=== PATIENT | female | born 1960 | race Caucasian/White ===

== ENCOUNTER → 2017-05-07 | Outpatient (CLI) | payer OTHER ==
[2014-11-01 14:36] VITALS: BP 156/84
[~2017-05-07] MED LIST: ALBU6.7H IH; AMLO5TAB4 PO; DESL5TAB PO; ESOM20CA PO; HYDR12.58 PO; IBUP200T44 PO; LEVO50TA5 PO; MINO100C PO; MOME17SP NS; SERT50TA PO; TELM1TAB3 PO
--- NOTE | 2017-05-07 11:40 | RAD ---
2 views right hip 05/07/2017 2:00 AM Indication: disability review Comparison: None Findings: There is no fracture or dislocation identified. Joint space appears preserved. Articular surfaces are uninterrupted. Soft tissues are unremarkable. Impression: No evidence of acute osseous abnormality
--- NOTE | 2017-05-07 11:41 | RAD ---
2 views right knee 05/07/2017 2:00 AM Indication: disability review Comparison: None Findings: There is no fracture or dislocation identified. Articular surfaces are uninterrupted. Joint spaces are preserved. Soft tissues are unremarkable. Tiny ossific density noted inferior to the patella lateral view may be a small loose body. Impression: 1.No evidence of acute osseous abnormality 2. Tiny ossific density noted inferior to the patella possibly representing a small loose body
--- NOTE | 2017-05-07 12:54 | RAD ---
3 views right hand 05/07/2017 2:00 AM Indication: disability review Comparison: None Findings: No fracture or dislocation is seen. Chronic fracture or accessory ossicle about the ulnar styloid noted. There is degenerative joint space narrowing involving the second through fifth distal interphalangeal joints. Appearance is consistent with mild osteoarthritis. No evidence of periarticular osteopenia is appreciated. No acute soft tissue abnormalities seen. 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
== END | disposition home or self-care (01) ==
LOC: DXRAD 09:20
PROVIDERS: ATTEND Neuromusculoskeletal Medicine, Sports Medicine
DX: M25.551 Pain in right hip (principal); M25.561 Pain in right knee; M19.041 Primary osteoarthritis, right hand; F17.200 Nicotine dependence, unspecified, uncomplicated
CPT/HCPCS: 73120; 73502; 73560

== ENCOUNTER → 2019-11-09 | Outpatient (CLI) | payer OTHER ==
[2014-11-01 14:36] VITALS: BP 156/84
[~2019-11-09] MED LIST changes: +ALBU2.5V8 IH; -ALBU6.7H IH; -MINO100C PO; +MINO100C61 PO
--- NOTE | 2019-11-09 17:47 | RAD ---
DATE: 11/09/2019 1:50 PM EXAM: DIGITAL DIAGNOSTIC BILATERAL HISTORY: Patient is due for screening but she presents with a pea-sized nodule in the superior left breast. COMPARISON: Bilateral mammograms of 12/24/2014 Bilateral full field craniocaudal and mediolateral oblique images were obtained using digital technique. This study was interpreted with the benefit of Computerized Aided Detection (CAD). FINDINGS: Breast Density: FATTY The Breast Parenchyma is primarily fatty replaced. Breast parenchyma level density A. No mammographic correlate to the area of palpable concern is identified. No mammographic interval change. No suspicious masses, microcalcifications or architectural distortion is present to suggest malignancy in either breast. The visualized axillae are unremarkable. IMPRESSION: No mammographic evidence of malignancy. BI-RADS CATEGORY: 1 NEGATIVE RECOMMENDED FOLLOW-UP: 12M 12 MONTH FOLLOW-UP Annual screening mammography is recommended, unless clinically indicated sooner based on symptoms or change in physical exam. Clinical follow-up and management of the area of palpable concern as reported by the patient is recommended. This should be considered for biopsy if it is clinically suspicious. Otherwise return to routine screening. PQRS compliance statement: Patient information was entered into a reminder system with a target due date for the next mammogram. Mammography is a sensitive method for finding small breast cancers, but it does not detect them all and is not a substitute for careful clinical examination. A negative mammogram does not negate a clinically suspicious finding and should not result in delay in biopsying a clinically suspicious abnormality. "Our facility is accredited by the [employer] Mammography Program."
== END | disposition home or self-care (01) ==
LOC: MAMMO 13:43
PROVIDERS: ATTEND Nurse Practitioner Family
DX: R92.2 Inconclusive mammogram (principal)
CPT/HCPCS: 77066